=== PATIENT | female | born 1955 | race African-American/Black ===

== ENCOUNTER 2016-04-18 08:15 | Day surgery (SDC) | payer BC ==
[2016-04-18 09:06] VITALS: BMI 27.9
[2016-04-18] MEDS ORDERED: LIDOCAINE HCL/PF 1% SDV 5ML VIAL ONE (11:18)
[2016-04-18] MEDS ORDERED: PROPOFOL 20 ML ONE ×2 (11:18)
[2016-04-18 13:32] VITALS: PULSE 60
[2016-04-18 13:43] VITALS: BP 128/55; TEMP 98
--- NOTE | 2016-04-19 13:38 | PATH ---
Surgical Pathology Report Patient Name: SHERRON MCNEAL [facility]. Rec. #: [id number] /Age/Gender: 1955 (Age: 60) / F Account: [id number] Location: U-ENDOSCOPY Taken: 04/18/2016 Received: 04/18/2016 Reported: 04/19/2016 Physicians: Stefano Hein M.D. Specimen(s) Received BX RECTAL POLYP Clinical History Rectal bleeding Redundant sigmoid, rectal polyp Final Diagnosis RECTUM, POLYP, BIOPSY: HYPERPLASTIC POLYP. Electronically Signed Carl Koo M.D. Gross Description Received in formalin, labeled "biopsy rectal polyp" are 2 pereira, irregular portions of soft tissue measuring 0.2 and 0.6 cm in greatest dimension. The specimens are submitted in toto in one cassette. 04/18/201604/18/2016
== END 2016-04-18 13:54 | disposition home or self-care (01) ==
LOC: JASU-ENDO 08:15
PROVIDERS: ATTEND Internal Medicine Gastroenterology
PROC: 0DBP8ZX Excision of Rectum, Via Natural or Artificial Opening Endoscopic, Diagnostic (ICD-10-PCS; principal; 2016-04-18 10:30)
DX: K62.5 Hemorrhage of anus and rectum (principal); K62.1 Rectal polyp; Q43.8 Other specified congenital malformations of intestine
CPT/HCPCS: 88305-TC

== ENCOUNTER 2017-08-11 12:04 | Emergency (ER) | payer SELFPAY ==
[2017-08-11 12:10] VITALS: BP 144/63; PULSE 77; TEMP 98; BMI 27.7
[2017-08-11] MEDS ORDERED: KETOROLAC TROMETHAMINE 30 MG/1 ML VIAL IM ONE (12:36)
[2017-08-11] MEDS ORDERED: KETOROLAC TROMETHAMINE 30 MG/1 ML VIAL ONE (12:40)
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
== END 2017-08-11 13:37 | disposition home or self-care (01) ==
LOC: JERFT 12:04
PROC: 3E0233Z Introduction of Anti-inflammatory into Muscle, Percutaneous Approach (ICD-10-PCS; principal; 2017-08-11)
DX: S40.012A Contusion of left shoulder, initial encounter (principal); Y04.2XXA Assault by strike against or bumped into by another person, initial encounter; Y93.89 Activity, other specified; Y92.038 Other place in apartment as the place of occurrence of the external cause; Y99.8 Other external cause status; Y07.01 Husband, perpetrator of maltreatment and neglect; I10 Essential (primary) hypertension; E78.00 Pure hypercholesterolemia, unspecified; Z86.010 Personal history of colon polyps
CPT/HCPCS: 73030-TC-LT-FY; 99281-25

== ENCOUNTER 2018-09-16 09:15 | Emergency (ER) | payer OTHER ==
[2018-09-16 09:21] VITALS: TEMP 97.9; BMI 28.3
--- NOTE | 2018-09-16 09:39 | PDOC ---
History of Present Illness - General Chief Complaint: Headache Stated Complaint: DIZZINESS Time Seen by Provider: 09/16/18 09:32 - History of Present Illness Initial Comments: 09/16/18 10:19 The patient is a 62 year old female with a history of HTN, HLD, who presents for evaluation of dizziness. The patient reports a 2-3 day history of dizziness that she describes as the room moving around herself with associated sensation of being unsteady on her feet. She noted a headache 1 day ago that resolved with aspirin. However, she continued to experience dizziness today prompting her presentation to the ED for further evaluation. She otherwise denies recent illness, fevers, chills, SOB, chest pain, nausea, vomiting, abdominal pain, numbness, tingling, weakness, or changes with urination or bowel movements. Past History - Past Medical History Allergies/Adverse Reactions: Allergies Allergy/AdvReac Type Severity Reaction Status Date / Time No Known Allergies Allergy Verified 09/16/18 09:17 Home Medications: Ambulatory Orders Montelukast Na [Singulair -] 10 mg PO PRN 08/21/11 Multivitamins [Multivit ([facility] Formulary)] 1 each PO DAILY 08/21/11 Aspirin 81 mg PO DAILY 09/16/18 Meclizine HCl [Antivert -] 25 mg PO TID #21 tablet 09/16/18 Nebivolol HCl [Bystolic] 5 mg PO DAILY 09/16/18 Pravastatin Sodium 20 mg PO DAILY 09/16/18 Anemia: No Asthma: No Cancer: No Cardiac Disorders: No CVA: No COPD: No CHF: No Dementia: No Diabetes: No GI Disorders: Yes (COLON POLYP, RECTAL BLEEDING) Disorders: No HTN: Yes Hypercholesterolemia: Yes Liver Disease: No Seizures: No Thyroid Disease: No - Surgical History Abdominal Surgery: No Appendectomy: No Cardiac Surgery: No Cholecystectomy: No Lung Surgery: No Neurologic Surgery: No Orthopedic Surgery: No - Immunization History Immunization Up to Date: Yes - Suicide/Smoking/Psychosocial Hx Smoking History: Never smoked Have you smoked in the past 12 months: No Hx Alcohol Use: No Drug/Substance Use Hx: No Substance Use Type: None Hx Substance Use Treatment: No Review of Systems - Review of Systems Comments:: 09/16/18 10:22 Constitutional: No fevers, chills, fatigue, malaise HEENT: No Rhinorrhea, nasal congestion, visual changes Cardiovascular: No chest pain, syncope, palpitations, lightheadedness Respiratory: No Cough, SOB, Hemoptysis, Gastrointestinal: No Abdominal pain, Nausea, Vomiting, Constipation, Diarrhea, Melena Genitourinary: No Dysuria, Frequency, Urgency, Hesitancy, Hematuria, Flank pain Musculoskeletal: No Myalgia, arthralgia Skin: No rashes, itching, bruising, pallor Neurologic: Headache, Dizziness. No Numbness, Weakness, or Tingling Psychiatric: No Hallucinations. No SI or HI *Physical Exam - Vital Signs Last Vital Signs Temp Pulse Resp BP Pulse Ox 97.9 F 57 L 18 119/59 L 97 09/16/18 09:18 09/16/18 09:18 09/16/18 09:18 09/16/18 09:18 09/16/18 09:18 - Physical Exam Comments: 09/16/18 10:23 General Appearance: Nourished. No Apparent Distress HEENT: EOMI, JULIO CESAR. No Pharyngeal Erythema, Tonsillar Exudate, Tonsillar Erythema Neck: No Cervical Lymphadenopathy Respiratory/Chest: Lungs Clear, Normal Breath Sounds. No Crackles, Rales, Rhonchi, Wheezing Cardiovascular: Regular Rhythm, Regular Rate. No Murmur, Gallops, Rubs Gastrointestinal/Abdominal: Normal Bowel Sounds, Soft. 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 Normal Finger to Nose and Heel to [place]. Negative [place] ED Treatment Course - LABORATORY CBC & Chemistry Diagram: 09/16/18 10:30 09/16/18 10:30 Medical Decision Making - Medical Decision Making 09/16/18 10:23 The patient is a 62 year old female with a history of HTN, HLD, who presents for evaluation of dizziness. Differential includes but is not limited to: Peripheral Vertigo, Central Vertigo, Cardiac, Infectious, Metabolic Derangement. Given the patient's history and physical exam, we will obtain a cbc, cmp, troponin, ekg, head CT to evaluate further. We will treat with iv fluids and meclazine and continue to monitor and reassess while here in the ED. 09/16/18 14:16 CBC, cmp, troponin were unremarkable. Head CT demonstrated no acute process as read by our radiologist. The patient was reassessed and reports improvement in their symptoms. We are comfortable discharging the patient home in stable condition. Patient made aware of impression and plan, return precautions discussed including but not limited to worsening pain or symptoms, fevers, or signs of infection, chest pain, respiratory distress, inability to tolerate oral intake, dehydration, syncope, or neurologic changes. The patient is to follow up with PMD and specialist as recommended within 1 week, follow up information provided and the patient will call for an appointment. The patient is to take medications as instructed for duration of time and continue with supportive care, avoid triggers and precipitants. Patient is safe for outpatient follow-up. *DC/Admit/Observation/Transfer Diagnosis at time of Disposition: Dizziness - Discharge Dispostion Disposition: HOME Condition at time of disposition: Stable - Prescriptions Prescriptions: Meclizine HCl [Antivert -] 25 mg PO TID #21 tablet - Referrals Referrals: Angel Shi MD [Primary Care Provider] - Henry Chua MD [Staff Physician] - - Patient Instructions Printed Discharge Instructions: DI for Vertigo Additional Instructions: 1) Please follow-up with your primary care doctor in the next 2-3 days. Please call tomorrow to schedule a follow up appointment. If you cannot follow up with your doctor within 1 week please return to the Emergency Department for any urgent issues. 2) Your laboratory / imaging results were normal here in the ER. Please also call your mail list processor Dr. Chua to schedule a follow up appointment to discuss your ER visit and further management of your symptoms. 3) If you have any worsening of symptoms or any other concerns please return to the ER immediately. Return if worsening symptoms including fevers, headache, vomiting, visual or hearing disturbances, abdominal pain, chest pain, shortness of breath, syncope, dehydration, inability to take things by mouth/vomiting, altered mental status, or worsening concerning symptoms. 4) Please continue taking your home medications as directed. Your medications on discharge include Meclazine . Side effects may include upset stomach, abdominal pain, vomiting, or diarrhea. Do not drink alcohol with your medications. - Post Discharge Activity
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
[2018-09-16] MEDS ORDERED: MECLIZINE HCL 25 MG TABLET (FP) PO ONE ×2 (10:12→13:04)
[2018-09-16] MEDS ORDERED: SODIUM CHLORIDE 1,000 ML IV STA (10:12)
[2018-09-16] MEDS ORDERED: MECLIZINE HCL 25 MG TABLET (FP) ONE ×2 (10:26→13:09)
[2018-09-16 10:53] LABS: BASO % 0.9 % (0-2.0); EOS % 2.3 % (0-4.5); HEMATOCRIT 32.2 % (32.4-45.2); HEMOGLOBIN 10.2 GM/dL (10.7-15.3); LYMPH % 19.6 % (8-40); MCH 25.9 pg (25.7-33.7); MCHC 31.8 g/dl (32.0-36.0); MEAN CELL VOLUME 81.4 fl (80-96); MONO % 8.3 % (3.8-10.2); NEUT % 68.9 % (42.8-82.8); PLATELET COUNT 258 K/MM3 (134-434); RBC 3.95 M/mm3 (3.60-5.2); RDW 15.8 % (11.6-15.6); WHITE BLOOD COUNT 5.3 K/mm3 (4.0-10.0)
[2018-09-16 11:30] LABS: ALBUMIN 3.6 g/dl (3.4-5.0); BILIRUBIN,TOTAL 0.9 mg/dL (0.2-1); BLOOD UREA NITROGEN 8.2 mg/dL (7-18); CREATININE 0.8 mg/dL (0.55-1.3)
[2018-09-16 14:34] VITALS: BP 163/72; PULSE 52
--- NOTE | 2018-09-16 17:26 | EKG ---
Test Reason : Blood Pressure : / mmHG Vent. Rate : 052 BPM Atrial Rate : 052 BPM P-R Int : 204 ms QRS Dur : 090 ms QT Int : 486 ms P-R-T Axes : 068 -05 259 degrees QTc Int : 451 ms POOR DATA QUALITY, INTERPRETATION MAY BE ADVERSELY AFFECTED SINUS BRADYCARDIA LEFT VENTRICULAR HYPERTROPHY WITH REPOLARIZATION ABNORMALITY ABNORMAL ECG WHEN COMPARED WITH ECG OF 21-OCT-2008 08:38, CRITERIA FOR SEPTAL INFARCT ARE NO LONGER PRESENT T WAVE INVERSION MORE EVIDENT IN INFERIOR LEADS T WAVE INVERSION MORE EVIDENT IN LATERAL LEADS QT HAS LENGTHENED Confirmed by KP FRENCH MD ([id number]) on 09/16/2018 5:26:38 PM Referred By: Confirmed By:KP FRENCH MD
== END 2018-09-16 14:35 | disposition home or self-care (01) ==
LOC: JER 09:15
PROC: 3E0337Z Introduction of Electrolytic and Water Balance Substance into Peripheral Vein, Percutaneous Approach (ICD-10-PCS; principal; 2018-09-16)
DX: R42 Dizziness and giddiness (principal); I10 Essential (primary) hypertension; E78.5 Hyperlipidemia, unspecified
CPT/HCPCS: 36415; 70450-TC; 80053; 82550; 84484; 85025; 93005; 93010; 96360; 99283-25; J7030

== ENCOUNTER 2018-11-30 13:24 | Emergency (ER) | payer OTHER ==
[2018-11-30 13:35] VITALS: TEMP 97.7; BMI 29.2
[2018-11-30] MEDS ORDERED: MECLIZINE HCL 25 MG TABLET (FP) PO ONE (14:34)
[2018-11-30] MEDS ORDERED: MECLIZINE HCL 25 MG TABLET (FP) ONE (14:41)
--- NOTE | 2018-11-30 14:46 | PDOC ---
History of Present Illness - General Chief Complaint: Lightheaded Stated Complaint: VERTIGO Time Seen by Provider: 11/30/18 14:26 History Source: Patient Exam Limitations: No Limitations - History of Present Illness Initial Comments: 11/30/18 14:52 63-year-old female with history of vertigo presents to ED with complaints of intermittent dizziness for the past few days. Patient states symptoms are worse with standing. Patient has no other complaints at this time. Patient denies headache, visual changes, fever, chills or recent head injury. Patient states history of vertigo but had no more meclizine at home. Patient requesting the same. Timing/Duration: reports: episodic Severity: Yes: mild Associated Symptoms: reports: other (dizziness) Past History - Travel Traveled outside of the country in the last 30 days: No Close contact w/someone who was outside of country & ill: No - Past Medical History Allergies/Adverse Reactions: Allergies Allergy/AdvReac Type Severity Reaction Status Date / Time No Known Allergies Allergy Verified 11/30/18 13:35 Home Medications: Ambulatory Orders Montelukast Na [Singulair -] 10 mg PO PRN 08/21/11 Multivitamins [Multivit ([facility] Formulary)] 1 each PO DAILY 08/21/11 Aspirin 81 mg PO DAILY 09/16/18 Meclizine HCl [Antivert -] 25 mg PO TID #21 tablet 09/16/18 Nebivolol HCl [Bystolic] 5 mg PO DAILY 09/16/18 Pravastatin Sodium 20 mg PO DAILY 09/16/18 Anemia: No Asthma: No Cancer: No Cardiac Disorders: No CVA: No COPD: No CHF: No Dementia: No Diabetes: No GI Disorders: Yes (COLON POLYP, RECTAL BLEEDING) Disorders: No HTN: Yes Hypercholesterolemia: Yes Liver Disease: No Seizures: No Thyroid Disease: No - Surgical History Abdominal Surgery: No Appendectomy: No Cardiac Surgery: No Cholecystectomy: No Lung Surgery: No Neurologic Surgery: No Orthopedic Surgery: No - Immunization History Immunization Up to Date: Yes - Psycho Social/Smoking Cessation Hx Smoking History: Never smoked Have you smoked in the past 12 months: No Information on smoking cessation initiated: No Hx Alcohol Use: No Drug/Substance Use Hx: No Substance Use Type: None Hx Substance Use Treatment: No Patient Lives Alone: Yes Lives with/in: spouse/SO Review of Systems - Review of Systems Able to Perform ROS?: Yes Constitutional: No: Symptoms Reported HEENTM: No: Symptoms Reported Respiratory: No: Symptoms reported Cardiac (ROS): Yes: Lightheadedness Musculoskeletal: No: Symptoms Reported Integumentary: No: Symptoms Reported Neurological: Yes: Dizziness. No: Headache, Weakness Endocrine: No: Symptoms Reported Hematologic/Lymphatic: No: Symptoms Reported *Physical Exam - Vital Signs Last Vital Signs Temp Pulse Resp BP Pulse Ox 97.7 F 84 16 152/50 L 100 11/30/18 13:33 11/30/18 13:33 11/30/18 13:33 11/30/18 13:33 11/30/18 13:33 - Physical Exam General Appearance: Yes: Nourished, Appropriately Dressed. No: Apparent Distress HEENT: negative: Pale Conjunctivae Neck: positive: Normal Thyroid Respiratory/Chest: positive: Lungs Clear, Normal Breath Sounds. negative: Respiratory Distress, Accessory Muscle Use Cardiovascular: positive: Regular Rhythm, Regular Rate. negative: Murmur Gastrointestinal/Abdominal: positive: Soft. negative: Tenderness Extremity: positive: Normal Inspection Integumentary: positive: Normal Color, Warm, Moist Neurologic: positive: Motor Strength 5/5 (ambulatory) ED Treatment Course - LABORATORY CBC & Chemistry Diagram: 11/30/18 15:15 11/30/18 15:15 Medical Decision Making - Medical Decision Making 11/30/18 14:49 Chief complaint: Intermittent dizziness without visual changes nausea or headache since yesterday night worse with standing. Patient with history of vertigo but has no meclizine left. Patient has no other complaints. Exam: Vital stable negative Hallpike's no abnormal findings Plan: Urine, CBC, Comp secondary to history of anemia and meclizine dose ordered 11/30/18 15:55 Laboratory Tests 11/30/18 11/30/18 15:15 15:15 WBC 5.2 Hgb 11.2 Hct 34.9 Absolute Neuts (auto) 3.1 Ur Specific [place] 1.002 L Urine Ketones Negative Urine Blood Negative Urine Nitrite Negative Urine Bilirubin Negative Ur Leukocyte Esterase Negative Discharge - Follow up/Referral Referrals: Angel Sih MD [Primary Care Provider] - - Patient Discharge Instructions - Post Discharge Activity
[2018-11-30 15:52] LABS: BASO % 1.3 % (0-2.0); EOS % 3.5 % (0-4.5); HEMATOCRIT 34.9 % (32.4-45.2); HEMOGLOBIN 11.2 GM/dL (10.7-15.3); LYMPH % 26.4 % (8-40); MCH 25.7 pg (25.7-33.7); MCHC 31.9 g/dl (32.0-36.0); MEAN CELL VOLUME 80.5 fl (80-96); MEAN PLT VOLUME 9.2 fl (7.5-11.1); MONO % 8.3 % (3.8-10.2); NEUT % 60.5 % (42.8-82.8); PLATELET COUNT 274 K/MM3 (134-434); RBC 4.34 M/mm3 (3.60-5.2); RDW 16.3 % (11.6-15.6); WHITE BLOOD COUNT 5.2 K/mm3 (4.0-10.0)
[2018-11-30 16:10] LABS: ALBUMIN 3.7 g/dl (3.4-5.0); BLOOD UREA NITROGEN 9.8 mg/dL (7-18); CALCIUM 9.5 mg/dL (8.5-10.1); CREATININE 0.8 mg/dL (0.55-1.3); POTASSIUM 4.4 mmol/L (3.5-5.1); TOT PROT 7.6 g/dl (6.4-8.2)
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
[2018-11-30 16:51] VITALS: BP 178/58; PULSE 52
[2018-11-30 17:00] LABS: URINE APPEARANCE Clear; URINE BILIRUBIN Negative (NEGATIVE); URINE COLOR Light yellow; URINE GLUCOSE (UA) Negative (NEGATIVE); URINE KETONE Negative (NEGATIVE); URINE LEUK ESTERASE Negative (NEGATIVE); URINE NITRITE Negative (NEGATIVE); URINE PROTEIN Negative (NEGATIVE); URINE UROBILINOGEN 0.2 mg/dL (0.2-1.0)
== END 2018-11-30 16:52 | disposition home or self-care (01) ==
LOC: JER 13:24
DX: R42 Dizziness and giddiness (principal); I10 Essential (primary) hypertension; Z86.010 Personal history of colon polyps
CPT/HCPCS: 36415; 80053; 81003; 85025; 87086; 99282-25